=== PATIENT | male | born 1975 | race Caucasian/White ===

== ENCOUNTER 2017-01-24 15:08 | Emergency (ER) | payer MEDICARE, OTHER ==
[~2017-01-24 15:08] MED LIST: ALDACTONE25 MG PO; ASPIRIN325 MG PO; LEVEMIR100 UNIT/1 SQ; LOPRESSOR100 MG PO; NOVOLOG100 UNIT/2 SQ; PROTONIX40 MG PO; XARELTO20 MG PO; ZESTRIL2.5 MG PO
[2017-01-24 15:50] LABS: BASO % 0.2 % (0.2-1.2); EOS % 9.8 % (0.8-7.0); GRAN # 6.9 10_X3_uL (1.8-5.4); GRAN % 69.5 % (34.0-67.9); HEMATOCRIT 39.9 % (40-51); HEMOGLOBIN 12.5 g/dL (13.7-17.5); LYMPH # 1.2 10_X3_uL (1.3-3.6); LYMPH % 12.5 % (21.8-53.1); MEAN CORPUSCULAR HEMOGLOBIN 24.5 pg (27.0-33.0); MEAN CORPUSCULAR HGB CONC 31.3 g/dL (32.0-36.0); MEAN CORPUSCULAR VOLUME 78.2 fL (79-92); MEAN PLATELET VOLUME 10.9 fl (7.5-11.5); MONO # 0.8 10_X3_uL (0.3-0.8); PLATELET COUNT 184 x10_3/uL (163-337); RED CELL DISTRIBUTION WIDTH 21.2 % (11.6-14.4); WHITE BLOOD COUNT 9.9 x10_3/uL (4.2-9.1)
[2017-01-24 16:01] LABS: ALBUMIN 3.5 gm/dL (3.4-5.0); BILIRUBIN,TOTAL 0.69 mg/dL (0.0-1.0); CALCIUM 8.2 mg/dL (8.7-10.7); CREATININE 3.5 mg/dL (0.6-1.3); TOTAL PROTEIN 7.1 gm/dL (6.4-8.2)
== END 2017-01-24 20:11 | disposition home or self-care (01) ==
LOC: ER 15:08
PROVIDERS: Emergency Medicine
DX: E86.0 Dehydration (principal); R53.1 Weakness; E87.6 Hypokalemia; R21 Rash and other nonspecific skin eruption; E11.9 Type 2 diabetes mellitus without complications; I10 Essential (primary) hypertension; Z89.422 Acquired absence of other left toe(s); M79.672 Pain in left foot; M86.8X7 Other osteomyelitis, ankle and foot; Z79.899 Other long term (current) drug therapy; Z79.84 Long term (current) use of oral hypoglycemic drugs; Z88.8 Allergy status to other drugs, medicaments and biological substances
CPT/HCPCS: 36415; 80053; 83605; 85025; 96360; 96361; 99070; 99284; 99285-25